=== PATIENT | female | born 1995 | race Caucasian/White ===

== ENCOUNTER 2017-06-10 15:07 | Emergency (ER) | payer OTHER ==
[2017-06-10 15:20] VITALS: TEMP 37.1; O2SAT 93
[2017-06-10] MEDS ORDERED: BCPILLS PO (15:55)
[2017-06-10 16:31] LABS: BLOOD UREA NITROGEN 12 mg/dl (7-18); BUN/CREATININE RATIO 13.8 (10-20); CARBON DIOXIDE 22 mmol/L (21-32); CHLORIDE 109 mmol/L (98-107); CREATININE 0.88 mg/dl (0.60-1.20); GLUCOSE 93 mg/dl (70-99); POTASSIUM 3.4 mmol/L (3.5-5.1); SODIUM 141 mmol/L (136-145)
--- NOTE | 2017-06-10 17:32 | EMERGENCY ROOM VISIT NOTE ---
History Report prepared by Ciriloibbecyk: Zehra Ortiz Under the Supervision of: Dr. Juanjose Pan D.O. 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 Per EMS, the patient was found on [address] and was tailgating today. They report that she fell today but did not have any head injury. The patient has nausea and is currently vomiting. She denies any abdominal pain, head pain, head injury , leg pain, arm pain. HPI limited secondary to intoxication. 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 Review of Systems See HPI for pertinent positives & negatives. ROS limited secondary to intoxication. Past Medical & Surgical Medical Problems: (1) No Known Active Medical Problems Family History No pertinent family history stated. 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 Current/Historical Medications Scheduled Control Pills ( Control Pills), 1 TAB PO DAILY Allergies Coded Allergies: No Known Allergies (Unverified , 06/10/17) Physical Exam Vital Signs Date Time Temp Pulse Resp B/P (MAP) Pulse Ox O2 Delivery O2 Flow Rate FiO2 06/10/17 18:18 123 14 128/74 98 Room Air 06/10/17 17:26 108 24 95 06/10/17 17:02 88 19 107/67 95 Room Air 06/10/17 16:26 99 21 98 Room Air 06/10/17 16:02 112/62 06/10/17 15:56 109 22 109/91 97 Room Air 06/10/17 15:56 111 18 109/91 97 Room Air 06/10/17 15:24 103 06/10/17 15:20 37.1 106 20 123/74 93 Room Air 06/10/17 15:20 93 Room Air Physical Exam CONSTITUTIONAL/VITAL SIGNS: Reviewed / noted above. GENERAL: Smells of alcohol and has vomited on herself. INTEGUMENTARY: Warm, dry, and [place]. HEAD: Normocephalic. EYES: without scleral icterus or trauma. ENT/OROPHARYNX: clear and moist. LYMPHADENOPATHY/NECK: Is supple without lymphadenopathy or meningismus. RESPIRATORY: Lungs clear and equal. CARDIOVASCULAR: Regular rate and rhythm. GI/ABDOMEN: Soft and nontender. No organomegaly or pulsatile mass. No rebound or guarding. Normal bowel sounds. EXTREMITIES: Warm and well perfused. BACK: No CVA tenderness. NEUROLOGICAL: Intact without focal deficits. Slurred speech, responds minimally to verbal stimuli but does state her name. PSYCHIATRIC: normal affect. MUSCULOSKELETAL: Normally developed with good muscle tone. Medical Decision & Procedures Laboratory Results 06/10/17 15:58 Test 06/10/17 15:58 Anion Gap 10.0 mmol/L (3-11) Estimated GFR () 108.1 Estimated GFR (Non- 93.3 BUN/Creatinine Ratio 13.8 (10-20) Calcium Level 8.0 mg/dl (8.5-10.1) Ethyl Alcohol mg/dL 298.0 mg/dl (0-3) Laboratory results as stated above per my review. ED Course 1508: Previous medical records were reviewed. The patient was evaluated in room C1. A complete history and physical examination was performed. 182: The patient's parents are here. I updated them. 183: On reevaluation, the patient is doing ell. I discussed the results and findings with the patient. She verbalized agreement of the treatment plan. The patient was discharged home. Medical Decision There is no evidence of other toxic ingestions, trauma, anemia, hypoglycemia, head injury or intracranial pathology, meningitis, encephalitis, acute intrathoracic or abdominal pathology or other metabolic condition. This is a 22-year-old female who presents to the ED with a chief complaint of alcohol intoxication. Details listed above. The patient remained in an aspiration precaution position during his ED stay. The patient remained on the monitor without ectopy. Pulse ox was never shown any evidence of hypoxia. Blood pressure never showed significant hypotension. The patient was observed during her entire stay. The mental status improved and the patient was awake alert and oriented and was felt stable for discharge. Patient was discharged home with her parents. Blood work revealed an alcohol level of 298. PRP was unremarkable. Medication Reconcilliation Current Medication List: was personally reviewed by me Blood Pressure Screening Patient's blood pressure: Normal blood pressure Blood pressure disposition: Did not require urgent referral Impression Primary Impression: Alcohol use with intoxication Scribe Attestation The scribe's documentation has been prepared under my direction and personally reviewed by me in its entirety. I confirm that the note above accurately reflects all work, treatment, procedures, and medical decision making performed by me. Departure Information Dispostion Home / Self-Care Forms HOME CARE DOCUMENTATION FORM, IMPORTANT VISIT INFORMATION Patient Instructions [facility]: [employer] Students and Alcohol Related Visits, My [facility] Additional Instructions Avoid excessive consumption of alcohol.
[2017-06-10 18:52] VITALS: BP 128/74; PULSE 123; O2SAT 98
== END 2017-06-10 18:52 | disposition home or self-care (01) ==
LOC: C.EDC 15:09
DX: F10.129 Alcohol abuse with intoxication, unspecified (principal); Y90.8 Blood alcohol level of 240 mg/100 ml or more